=== PATIENT | female | born 1970 | race Caucasian/White ===

== ENCOUNTER 2017-01-02 15:41 | Emergency (ER) | payer BC ==
[~2017-01-02] VITALS: Ht 160 cm; Wt 87.1 kg
[2017-01-02] MEDS ORDERED: ACETAMINOPHEN 500 MG TABLET PO ONE (16:00)
[2017-01-02 16:10] VITALS: BP_SYST 153
[2017-01-02 16:33] VITALS: BP_SYST 153
== END 2017-01-02 16:33 | disposition home or self-care (01) ==
LOC: SED 15:41
DX: S90.122A Contusion of left lesser toe(s) without damage to nail, initial encounter (principal); W22.8XXA Striking against or struck by other objects, initial encounter; Y93.89 Activity, other specified; Y92.89 Other specified places as the place of occurrence of the external cause; Y99.8 Other external cause status
CPT/HCPCS: 99284

== ENCOUNTER 2018-08-31 20:16 | Emergency (ER) | payer BC ==
[~2018-08-31] VITALS: Ht 160 cm; Wt 104.3 kg
[2018-08-31 20:20] VITALS: BP_SYST 153
[2018-08-31] MEDS ORDERED: KETOROLAC TROMETHAMINE 60 MG/2 ML VIAL IM ONE (21:00)
[2018-08-31] MEDS ORDERED: ONDANSETRON 4 MG ODT TAB PO ONE (21:30)
[2018-08-31 21:33] VITALS: BP_SYST 153
== END 2018-08-31 21:32 | disposition home or self-care (01) ==
LOC: SED 20:16
DX: L04.0 Acute lymphadenitis of face, head and neck (principal); R03.0 Elevated blood-pressure reading, without diagnosis of hypertension; Z90.710 Acquired absence of both cervix and uterus
CPT/HCPCS: 81025; 96372; 99283; J1885